=== PATIENT | female | born 1985 | race Two or more races ===

== ENCOUNTER 2023-09-19 17:28 | Emergency (ER) | payer OTHER, SELFPAY ==
[2023-09-19] VITALS (10 sets, daily range): BP systolic 98–129; BP diastolic 59–79; PULSE 51–80; TEMP 37.2; O2SAT 95–100; BMI 30.3
--- NOTE | 2023-09-19 17:51 | ECG_ITS ---
The [facility] Test Date: 2023-09-19 Pat Name: MARÍA ELENA LAUGHLIN Department: Room: - Gender: Female Field Services Manager: : 1985 Requested By: [id number] Order Number: [id number] Reading MD: ROSANA COBB Measurements Intervals [place] Rate: 71 P: 35 [place]: 160 QRS: 64 QRSD: 80 T: 0 QT: 368 QTc: 390 Interpretive Statements 1100 Sinus rhythm 1102 Sinus arrhythmia 9110 normal ECG No previous ECG available for comparison Electronically Signed On 09-20-2023 18:27:12 EDT by ROSANA COBB
--- NOTE | 2023-09-19 17:51 | XR_ITS ---
The [address] [address] Patient Name: MARÍA ELENA LAUGHLIN MRN: [facility]:[id number] date: 1985 Sex: F Assigned Patient Location: ER Current Patient Location: ER Accession/Order Number: [id number] Exam Date: 09/19/2023 19:15 Report Date: 09/19/2023 21:44 At the request of: VERONICA ROSARIO Procedure: XR lumbar spine 2-3V EXAM: XR lumbar spine 2-3V HISTORY: The patient is a 38-year-old female. Low back pain, atraumatic COMPARISON: None. FINDINGS: The lumbar spine is radiographically negative with no evidence of fracture, loss of vertebral body height, disc space narrowing, or malalignment. The sacroiliac joints are maintained. Negative. Electronically authenticated by: LUIS ALBERTO SCOTT Date: 09/19/2023 21:44
--- NOTE | 2023-09-19 17:53 | ED_ITS ---
HPI HPI - General Adult General Chief complaint: Abdominal Pain Stated complaint: ABD PAIN Time Seen by Provider: 09/19/23 17:36 Source: patient Mode of arrival: walk-in History of Present Illness HPI narrative: 38-year-old female presents to the emergency department for low back pain. She has had it for about 6 months and there was no injury. She is also complaining of some slight abdominal pain and some chest pain that she is also had for 6 months. She does not have a doctor in the local area. She took a test at home and it was negative. LMP August 21. The pain in her back does not seem to radiate. No weakness or numbness in her legs. History is obtained through official court interpreter service. Related Data Allergies Allergy/AdvReac Type Severity Reaction Status Date / Time No Known Drug Allergies Allergy Verified 09/19/23 17:51 Opioid HPI Opioid Management Most Recent Opioid Data: No Data to Display Review of Systems ROS Narrative A ten point review of systems is negative except as noted above. Exam Narrative Exam Narrative: Nurses note and vital signs reviewed and patient is not hypoxic. General: The patient appears well and in no apparent distress. Patient is resting comfortably on cart. Skin: Warm, dry, no pallor noted. There is no rash noted. Head: Normocephalic, atraumatic Eye: Normal conjunctiva, no drainage Ears, Nose, Mouth, and Throat: oral mucosa is moist. Nares patent. Cardiovascular: Regular Rate and Rhythm Respiratory: Patient is in no distress, no accessory muscle use, lungs are clear to auscultation, no wheezing, rales or rhonchi Back: non-tender, no CVA tenderness bilaterally to percussion. GI: Soft and no apparent tenderness Musculoskeletal: The patient has no evidence of calf tenderness, no pitting edema, symmetrical pulses noted bilaterally Neurological: Awake and alert Psychiatric: Cooperative Constitutional Vital Signs, click to edit/add: Last Vital Signs Temp 99.0 F 09/19/23 17:40 Pulse 78 09/19/23 17:40 Resp 16 09/19/23 17:40 BP 129/79 09/19/23 17:40 Pulse Ox 100 09/19/23 17:40 O2 Del Method Room Air 09/19/23 17:40 Course Vital Signs Vital signs: Vital Signs Temperature 99.0 F 09/19/23 17:40 Pulse Rate 78 09/19/23 17:40 Respiratory Rate 16 09/19/23 17:40 Blood Pressure 129/79 09/19/23 17:40 Pulse Oximetry 100 09/19/23 17:40 Oxygen Delivery Method Room Air 09/19/23 17:40 Temperature 99.0 F 09/19/23 17:40 Pulse Rate 78 09/19/23 17:40 Respiratory Rate 16 09/19/23 17:40 Blood Pressure 129/79 09/19/23 17:40 Pulse Oximetry 100 09/19/23 17:40 Oxygen Delivery Method Room Air 09/19/23 17:40 Medical Decision Making MDM Narrative Medical decision making narrative: Tests are ordered and the patient is signed out to Dr. Ag at change of shift. Differential Diagnosis Differential Diagnosis: UTI, lumbar strain, chest pain, nonspecific abdominal pain Lab Data Lab results reviewed: Yes I reviewed the patient's lab results Labs: Lab Results 09/19/23 Range/Units 18:17 WBC 5.9 (4.0-11.0) 10^3/uL RBC 4.72 (4.20-5.40) 10^6/uL Hgb 10.2 L (12.0-16.0) g/dL Hct 32.6 L (36.0-48.0) % MCV 69.1 L (81.0-99.0) fL MCH 21.6 L (26.7-34.0) pg MCHC 31.3 (29.9-35.2) g/dL RDW 15.4 H (11.0-15.0) % Plt Count 257 (150-450) 10^3/uL MPV 12.5 (9.5-13.5) fL Neut % (Auto) 47.0 (43.0-75.0) % Lymph % (Auto) 37.9 (20.5-60.0) % [place] % (Auto) 12.1 H (1.7-12.0) % Eos % (Auto) 2.1 (0.9-7.0) % Baso % (Auto) 0.7 (0.2-2.0) % Neut # (Auto) 2.8 (1.4-6.5) 10^3/uL Lymph # (Auto) 2.2 (1.2-3.8) 10^3/uL [place] # (Auto) 0.7 (0.3-0.8) 10^3/uL Eos # (Auto) 0.1 (0.0-0.7) 10^3/uL Baso # (Auto) 0.0 (0.0-0.1) 10^3/uL Abs Immat Gran (auto) 0.01 (0.00-0.03) 10^3/uL Imm/Tot Granulo (auto) 0.2 (0.0-0.5) % ECG Data Attestation: I personally reviewed and interpreted this ECG as follows: (EKG on my interpretation shows normal sinus rhythm without acute change and rate of 71.) Discharge Plan Discharge Patient Disposition: Still a Patient
[2023-09-19 18:43] LABS: Basophils Percent Auto 0.7 % (0.2-2.0); Eosinophils Absolute Auto 0.1 10^3/uL (0.0-0.7); Eosinophils Percent Auto 2.1 % (0.9-7.0); Hematocrit 32.6 % (36.0-48.0); Hemoglobin 10.2 g/dL (12.0-16.0); Immature Granulocytes Abs Auto 0.01 10^3/uL (0.00-0.03); Immature Granulocytes Pct Auto 0.2 % (0.0-0.5); Lymphocytes Absolute Auto 2.2 10^3/uL (1.2-3.8); Lymphocytes Percent Auto 37.9 % (20.5-60.0); Mean Corpuscular HGB Conc 31.3 g/dL (29.9-35.2); Mean Corpuscular Hemoglobin 21.6 pg (26.7-34.0); Mean Corpuscular Volume 69.1 fL (81.0-99.0); Mean Platelet Volume 12.5 fL (9.5-13.5); Monocytes Absolute Auto 0.7 10^3/uL (0.3-0.8); Monocytes Percent Auto 12.1 % (1.7-12.0); Neutrophils Absolute Auto 2.8 10^3/uL (1.4-6.5); Platelet Count 257 10^3/uL (150-450); Red Blood Count 4.72 10^6/uL (4.20-5.40); Red Cell Distribution Width 15.4 % (11.0-15.0); White Blood Count 5.9 10^3/uL (4.0-11.0)
[2023-09-19 18:44] LABS: Bilirubin Urine NEGATIVE (NEGATIVE); Blood Urine NEGATIVE (NEGATIVE); Clarity Urine CLEAR (CLEAR); Color Urine LT. YELLOW (YELLOW); Glucose Urine UA NEGATIVE (NEGATIVE); Ketones Urine NEGATIVE (NEGATIVE); Leukocyte Esterase Urine NEGATIVE (NEGATIVE); Nitrite Urine NEGATIVE (NEGATIVE); Protein Urine NEGATIVE (NEG/TRACE); Urobilinogen Urine 0.2 EU/dL (0.2-1.0); pH Urine 7.5 (5.0-9.0)
[2023-09-19 18:52] LABS: Anion Gap 9.5; BUN Creatinine Ratio 8.6; Calcium 8.6 mg/dL (8.5-10.1); Carbon Dioxide 26.3 mmol/L (21.0-32.0); Chloride 104 mmol/L (98-107); Estimated GFR (African America >60 (>=60); Estimated GFR (Non-African Ame >60 (>=60); Glucose 80 mg/dL (74-106); Potassium 3.8 mmol/L (3.5-5.1); Sodium 136 mmol/L (136-145)
[2023-09-19 19:08] LABS: Bacteria Urine NONE SEEN #/HPF (NONE SEEN); Mucus Urine NONE SEEN (NONE SEEN); RBC Urine NONE SEEN #/HPF (0-2); WBC Urine 0-2 #/HPF (NONE SEEN)
[2023-09-19 19:09] LABS: HCG Qualitative NEGATIVE (NEGATIVE); Internal Control Within Normal Limits
[2023-09-19 19:09] LABS: Cast Seen? NONE SEEN #/LPF (NONE SEEN); Crystals Seen? None Seen #/HPF (None Seen); Squamous Epithelial Cell Urine MODERATE #/LPF (NONE/RARE); Urine Culture Indicated NO
[2023-09-19 19:41] LABS: HCG Qualitative Urine* NEGATIVE (NEGATIVE); Internal Control Within Normal Limits
[2023-09-19] MEDS: NAPROXEN 250 MG TABLET 500 MG PO (23:07)
== END 2023-09-19 23:17 | disposition home or self-care (01) ==
PROVIDERS: Emergency Medicine; Emergency Provider Internal Medicine
DX: M54.9 Dorsalgia, unspecified (principal)
CPT/HCPCS: 36415; 72100; 80048; 81001; 84703; 85025; 93005; 99285